=== PATIENT | female | born 1975 ===

== ENCOUNTER 2022-09-30 12:10 | Outpatient (CLI) | payer OTHER | END 2022-09-30 12:12 | disposition home or self-care (01) | LOC: SONOGRAMA 12:10 | PROVIDERS: ATTEND Pathology Anatomic Pathology & Clinical Pathology | DX: D36.0 Benign neoplasm of lymph nodes (principal) ==

== ENCOUNTER 2023-05-13 05:50 | Day surgery (SDC) | payer OTHER ==
[2023-05-02 15:07] LABS: HEMATOCRIT 38.7 % (36.0-45.00); HEMOGLOBIN 12.8 g/dL (12.0-15.00); MEAN CELL VOLUME 89.5 fL (80.00-100.00); MEAN CORPUSCULAR HEMOGLOBIN 29.5 pg (27.00-32.0); RED BLOOD COUNT 4.32 M/uL (4.00-6.00); RED CELL DISTRIBUTION WIDTH 13.6 % (11.5-14.5)
[2023-05-02 15:10] LABS: PH,URINE 5.5 (5.0-8.0); URINE APPEARANCE Cloudy; URINE BILIRRUBIN Negative (NEGATIVE); URINE BLOOD Moderate; URINE COLOR Dark Yellow; URINE GLUCOSE Negative (NEGATIVE); URINE LEUKOCYTE Moderate; URINE NITRATE Negative; URINE PROTEIN 30 (NEGATIVE)
[2023-05-02 15:14] LABS: URINE EPITHELIAL CELLS 116.5 uL (0.0-38.8); URINE RBC 26.4 uL (0.0-20.8); URINE WBC 228.5 uL (0.0-23.2)
[2023-05-02 15:15] LABS: PLATELET COUNT 116 K/uL (150-450)
[2023-05-02 15:35] LABS: URINE CRYSTALS FEW /HPF; URINE MUCUS HEAVY
[2023-05-02 15:54] LABS: BILIRUBIN TOTAL 0.58 mg/dL (0.3-1.2); CALCIUM 8.9 mg/dL (8.5-10.1); CREATININE SERUM 0.73 mg/dL (0.55-1.02); GFR 85.83; GLOBULINA 3.9 G/DL (2.4-3.5); POTASSIUM 4.3 mEq/L (3.5-5.1); TOTAL PROTEIN 7.9 gm/dL (6.4-8.2)
[2023-05-13] MEDS ORDERED: POVIDONE-IODINE 118 ML BOTT TOP ONE ×2 (13:28→14:30)
[2023-05-13] MEDS ORDERED: PROMETHAZINE HCL 50 MG/ML AMPUL IM ONE (15:00)
[2023-05-13] MEDS ORDERED: MORPHINE SULFATE 4 MG/ML VIAL IV PRN (15:00)
[2023-05-13] MEDS ORDERED: KETOROLAC TROMETHAMINE 30 MG VIAL IU ONE (15:00)
== END 2023-05-13 17:25 | disposition home or self-care (01) ==
LOC: CIR.AMB 05:50
PROVIDERS: ATTEND Obstetrics & Gynecology
DX: N84.0 Polyp of corpus uteri (principal); N93.8 Other specified abnormal uterine and vaginal bleeding; Z88.1 Allergy status to other antibiotic agents